=== PATIENT | female | born 1970 | race Caucasian/White ===

== ENCOUNTER 2019-05-24 10:17 | Inpatient (IN) | payer OTHER ==
[2019-05-24] MEDS ORDERED: MECLIZINE HCL 25 MG TABLET (FP) ONE (11:03)
[2019-05-24] MEDS ORDERED: ONDANSETRON 4 MG/2 ML VIAL IVPUSH ONE (11:03)
[2019-05-24] MEDS ORDERED: ONDANSETRON 4 MG/2 ML VIAL ONE (11:03)
[2019-05-24] MEDS ORDERED: MECLIZINE HCL 25 MG TABLET (FP) PO ONE (11:03)
[2019-05-24] MEDS ORDERED: SODIUM CHLORIDE 1,000 ML IV STA (11:04)
--- NOTE | 2019-05-24 11:10 | PDOC ---
History of Present Illness - General Chief Complaint: Lightheaded Stated Complaint: DIZZINESS,VOMITING Time Seen by Provider: 05/24/19 10:37 History Source: Patient Exam Limitations: No Limitations - History of Present Illness Initial Comments: 05/24/19 11:15 48 yo female pmh anxiety presents to the ED for 1 day of profound dizziness, lightheadedness, NB/NB vomiting. Pt states she woke up this AM very dizzy, feels like the room is spinning around her. Pt never had symptoms like this before, denies DECKER, weakness/sensory changes on 1 side, changes in vision, ear pain, recent illness, sick contacts, recent travel, CP,SOB, abdominal pain, changes in bowel or bladder habits. Past History - Past Medical History Allergies/Adverse Reactions: Allergies Allergy/AdvReac Type Severity Reaction Status Date / Time sulfacetamide Allergy Verified 05/24/19 10:20 [From Sulfamide] environmental allergies Allergy Uncoded 05/24/19 10:21 Home Medications: Ambulatory Orders Clonazepam 0.5 mg PO DAILY 05/24/19 Paroxetine HCl [Paxil Cr] 25 mg PO DAILY 05/24/19 COPD: No Psychiatric Problems: Yes (anxiety/depression) - Psycho Social/Smoking Cessation Hx Smoking History: Never smoked Hx Alcohol Use: No Drug/Substance Use Hx: No Review of Systems - Review of Systems Constitutional: No: Chills HEENTM: No: Blurred Vision Respiratory: No: Shortness of Breath Cardiac (ROS): No: Chest Pain, Edema ABD/GI: Yes: Nausea, Vomiting. No: Constipated, Diarrhea : No: Burning, Dysuria, Frequency, Flank Pain, Hematuria Musculoskeletal: No: Back Pain Neurological: Yes: Dizziness. No: Headache, Numbness, Paresthesia, Unsteady Gait *Physical Exam - Vital Signs Last Vital Signs Temp Pulse Resp BP Pulse Ox 97.3 F L 62 16 114/57 L 100 05/24/19 10:21 05/24/19 10:21 05/24/19 10:21 05/24/19 10:21 05/24/19 10:45 - Physical Exam General Appearance: Yes: Nourished, Appropriately Dressed. No: Apparent Distress HEENT: positive: EOMI, ULISES, Normal ENT Inspection, Hearing Grossly Normal, Other (horizontal nystagmus). negative: Scleral Icterus (R), Scleral Icterus (L ), TM Bulging, TM Dull Neck: positive: Supple. negative: Carotid bruit Respiratory/Chest: positive: Lungs Clear, Normal Breath Sounds. negative: Respiratory Distress, Accessory Muscle Use, Crackles, Rales, Rhonchi, Stridor, Wheezing Cardiovascular: positive: Regular Rhythm, Regular Rate, S1, S2. negative: Edema , JVD, Murmur Vascular Pulses: Dorsalis-Pedis (R): 4+, Doralis-Pedis (L): 4+ Gastrointestinal/Abdominal: positive: Flat, Soft. negative: Pulsatile Mass, Protuberent, Distended, Guarding, Rebound, Tenderness Musculoskeletal: negative: CVA Tenderness Extremity: positive: Normal Capillary Refill, Normal Inspection, Normal Range of Motion Integumentary: positive: Normal Color, Dry, Warm Neurologic: positive: retread builder II-XII NML intact, Fully Oriented, Alert, Normal Mood/ Affect, Normal Response, Motor Strength 5/5. negative: Facial Droop, Numbness, Sensory Deficit, Disoriented ED Treatment Course - LABORATORY CBC & Chemistry Diagram: 05/24/19 10:45 05/24/19 10:45 Medical Decision Making - Medical Decision Making 05/24/19 11:24 48 yo female pmh anxiety presents to the ED for 1 day of profound dizziness, lightheadedness, NB/NB vomiting. Pt states she woke up this AM very dizzy, feels like the room is spinning around her. States she feels worse when she moves her head or opens her eyes. Pt never had symptoms like this before, denies DECKER, weakness/sensory changes on 1 side, changes in vision, ear pain, recent illness, sick contacts, recent travel, CP,SOB, abdominal pain, changes in bowel or bladder habits. vitals WNL exam shows horizontal nystagmus Given fluids and meclizine, reassess and dispo 05/24/19 12:42 Vertigo is horizontal and rotatory, pt has no sig improvement after meclizine, will give valium, Head CT and R/O central cause of vertigo 05/24/19 19:33 Discussed case with Neuro, Dr. Ontiveros, agrees pt should be admitted and have non con Brain MRI Pt admitted to hospitalist Discharge - Discharge Information Problems reviewed: Yes Clinical Impression/Diagnosis: Vertigo - Admission Yes - Follow up/Referral - Patient Discharge Instructions - Post Discharge Activity
[2019-05-24] MEDS ORDERED: diazePAM 5 MG TABLET PO ONE (12:41)
--- NOTE | 2019-05-24 12:41 | PDOC ---
Documentation entered by Marry Araya SCRIBE, acting as scribe for Dom Polanco MD. Dom Polanco MD: This documentation has been prepared by the Marshal perdomo Nirvannie, SCRIBE, under my direction and personally reviewed by me in its entirety. I confirm that the documentation accurately reflects all work, treatment, procedures, and medical decision making performed by me. Attending Attestation - Resident Resident Name: [place] - ED Attending Attestation I have performed the following: I have examined & evaluated the patient, The case was reviewed & discussed with the resident, I agree w/resident's findings & plan, Exceptions are as noted - HPI HPI: 05/24/19 12:00 The patient is a 48 year old female, with a significant past medical history of anxiety, who presents to the emergency department with 1 day of dizziness, lightheadedness, and vomiting. As per patient, her symptoms onset shortly after waking up this morning as dizziness described as the room-spinning. She describes her emesis as NBNB. She denies recent fevers, chills, diarrhea or constipation. She denies recent dysuria, frequency, urgency or hematuria. She denies recent chest pain or shortness of breath. Allergies: Sulfacetamide, environmental - Physicial Exam PE: 05/24/19 12:36 GENERAL: The patient is awake, alert, and fully oriented, Nontoxic - in no acute distress but uncomfortable appearing with her eyes open HEAD: Normocephalic, atraumatic. EYES: persisetent Rotatory and horizontal nystagmus ENT: Normal voice, Moist mucous membranes. NECK: Normal range of motion, supple LUNGS: Breath sounds equal, clear to auscultation bilaterally. No wheezes, no rhonchi, no rales. HEART: Regular rate and rhythm, normal S1 and S2 without murmur, rub or gallop. ABDOMEN: Soft, nontender, No guarding, no rebound. No CVA tenderness EXTREMITIES: Normal range of motion, no edema. NEUROLOGICAL: No facial assymetry, Normal speech, Normal [id number], rapid alternating movements, heel degroot, Motor is 5 out of 5 symmetric in upper and lower extremities b/l, Sensation is symmetric in upper and lower extremities Bilaterally. Gait exam deferred PSYCH: Normal mood, normal affect. SKIN: Warm, Dry, normal turgor, - Medical Decision Making 05/24/19 11:36 48-year-old female history of atraumatic anxiety presenting with sudden onset vertigo since this morning That is persistent associated nausea, vomiting, difficulty ambulating without any other focal neurologic symptoms including vision changes, speech changes, focal numbness, tingling, weakness, Is also no associated headache, palpitations, difficulty hearing, Diarrhea, melena. The symptoms are worsened with movement however she notes it is very subtle but present when she is lying still On exam the patient's exam is nonfocal beside persistent horizontal and rotatory nystagmus. Will obtain a CT of the head, blood work. Consider possible central cause of vertigo versus labyrinthitis. The patient was given meclizine without significant improvement, will give the patient Valium in addition 05/24/19 14:[address] pt still very dizzy will admit for further management will dw neurology Heart Score/ECG Review - ECG Impressions Comment:: 05/24/19 14:36 Twelve-lead EKG was performed and reviewed by me. There is normal sinus rhythm with a normal rate. rate of 68 The axis is normal. The intervals are normal. There is normal R wave progression There are no ST or T wave abnormalities. Impression: Normal twelve-lead EKG
[2019-05-24] MEDS ORDERED: diazePAM 5 MG TABLET ONE (12:46)
[2019-05-24 12:52] LABS: BASO % 0.2 % (0-2.0); EOS % 0.3 % (0-4.5); HEMATOCRIT 41.5 % (32.4-45.2); HEMOGLOBIN 14.4 GM/dL (10.7-15.3); LYMPH % 14.3 % (8-40); MCH 31.6 pg (25.7-33.7); MCHC 34.7 g/dl (32.0-36.0); MEAN PLT VOLUME 8.7 fl (7.5-11.1); MONO % 3.4 % (3.8-10.2); NEUT % 81.8 % (42.8-82.8); PLATELET COUNT 219 K/MM3 (134-434); RBC 4.56 M/mm3 (3.60-5.2); RDW 13.1 % (11.6-15.6); WHITE BLOOD COUNT 8.3 K/mm3 (4.0-10.0)
[2019-05-24 13:23] LABS: ALBUMIN 3.6 g/dl (3.4-5.0); BILIRUBIN,TOTAL 0.6 mg/dL (0.2-1); BLOOD UREA NITROGEN 9.9 mg/dL (7-18); CALCIUM 8.5 mg/dL (8.5-10.1); CREATININE 0.9 mg/dL (0.55-1.3); POTASSIUM 3.7 mmol/L (3.5-5.1)
--- NOTE | 2019-05-24 16:53 | HP ---
CHIEF COMPLAINT: dizziness PCP: HISTORY OF PRESENT ILLNESS: Patient is a 48 year old female with a significant past medical history of anxiety who presents to the ED today with profound dizziness, lightheadedness, non bilious, non bloody vomiting. The dizziness began today and has never had this occur before. This morning she woke up feeling very dizzy and as though the room was spinning around her. Dizziness persisted this morning and she was unable to ambulate and instead had to crawl around the floor as she was unsteady. She verbalizes nausea but no vomiting. She last saw her eye doctor 3 weeks ago and was prescribed contacts but did not wear them. States she feels worse when she moves her head or opens her eyes. She denies any weakness of upper or lower extremities, no loss of consciousness , changes in vision, ear pain, recent illness, sick contacts, recent travel, chest pain or shortness of breath. Seen in the ED and eye exam shows horizontal nystagmus. In the ED she was given fluids and meclizine. A head CT was negative. Brain MRI and Carotid dopplers are pending. ER course was notable for: (1) head ct negative (2) given valium (3) brain mri pending Recent Travel: denies any recent travel PAST MEDICAL HISTORY: anxiety PAST SURGICAL HISTORY: none Social History: Smoking: denies Alcohol:occasionally Drugs: denies Allergies sulfacetamide [From Sulfamide] Allergy (Verified 05/24/19 10:20) environmental allergies Allergy (Uncoded 05/24/19 10:21) HOME MEDICATIONS: Home Medications Medication Instructions Recorded Clonazepam 0.5 mg PO DAILY 05/24/19 Paroxetine HCl [Paxil Cr] 25 mg PO DAILY 05/24/19 REVIEW OF SYSTEMS CONSTITUTIONAL: Absent: fever, chills, diaphoresis, generalized weakness, malaise, loss of appetite, weight change HEENT: Absent: rhinorrhea, nasal congestion, throat pain, throat swelling, difficulty swallowing, mouth swelling, ear pain, eye pain, visual changes CARDIOVASCULAR: Absent: chest pain, syncope, palpitations, irregular heart rate, lightheadedness , peripheral edema RESPIRATORY: Absent: cough, shortness of breath, dyspnea with exertion, orthopnea, wheezing, stridor, hemoptysis GASTROINTESTINAL: Absent: abdominal pain, abdominal distension, nausea, vomiting, diarrhea, constipation, melena, hematochezia GENITOURINARY: Absent: dysuria, frequency, urgency, hesitancy, hematuria, flank pain, genital pain MUSCULOSKELETAL: Absent: myalgia, arthralgia, joint swelling, back pain, neck pain SKIN: Absent: rash, itching, pallor HEMATOLOGIC/IMMUNOLOGIC: Absent: easy bleeding, easy bruising, lymphadenopathy, frequent infections ENDOCRINE: Absent: unexplained weight gain, unexplained weight loss, heat intolerance, cold intolerance PSYCHIATRIC: Absent: anxiety, depression, suicidal or homicidal ideation, hallucinations. PHYSICAL EXAMINATION Vital Signs - 24 hr 05/24/19 05/24/19 10:21 10:45 Temperature 97.3 F L Pulse Rate 62 Respiratory 16 Rate Blood Pressure 114/57 L O2 Sat by Pulse 100 100 Oximetry (%) GENERAL: Awake, alert, and fully oriented, in no acute distress. HEAD: Normal with no signs of trauma. EYES: Pupils equal, round and reactive to light, + horizontal nystagmus. EARS, NOSE, THROAT: Ears normal, nares patent, oropharynx clear without exudates. Moist mucous membranes. NECK: Normal range of motion, supple without lymphadenopathy, JVD, or masses. LUNGS: Breath sounds equal, clear to auscultation bilaterally. HEART: Regular rate and rhythm ABDOMEN: Soft, nontender, not distended, normoactive bowel sounds, no guarding, no rebound, no masses. MUSCULOSKELETAL: Normal range of motion at all joints. No bony deformities or tenderness. No CVA tenderness. UPPER EXTREMITIES: No peripheral edema. LOWER EXTREMITIES: No peripheral edema. NEUROLOGICAL: Normal speech. unsteady gait. fall risk PSYCHIATRIC: Cooperative. Good eye contact. Appropriate mood and affect. SKIN: Warm, dry, normal turgor, no rashes or lesions noted, normal capillary refill. Laboratory Results - last 24 hr 05/24/19 05/24/19 10:45 10:45 WBC 8.3 RBC 4.56 Hgb 14.4 Hct 41.5 MCV 91.0 MCH 31.6 MCHC 34.7 RDW 13.1 Plt Count 219 MPV 8.7 Absolute Neuts (auto) 6.8 Neutrophils % 81.8 Lymphocytes % 14.3 Monocytes % 3.4 L Eosinophils % 0.3 Basophils % 0.2 Nucleated RBC % 0 Sodium 137 Potassium 3.7 Chloride 105 Carbon Dioxide 23 Anion Gap 9 BUN 9.9 Creatinine 0.9 Est GFR (CKD-EPI)AfAm 87.63 Est GFR (CKD-EPI)NonAf 75.61 Random Glucose 186 H Calcium 8.5 Total Bilirubin 0.6 AST 13 L ALT 23 Alkaline Phosphatase 66 Total Protein 7.0 Albumin 3.6 ASSESSMENT/PLAN: Family Medical History Family History: Unable to Obtain Problem List - Problem (1) Vertigo Assessment/Plan: head ct negative, for brain mri carotid doppler ordered evaluate by ordering hmga1c, lipid panel, tsh physical therapy Code(s): R42 - DIZZINESS AND GIDDINESS (2) Acute labyrinthitis Assessment/Plan: Per neurology start on medrol dose back and meclizine and monitor Code(s): H83.09 - LABYRINTHITIS, UNSPECIFIED EAR (3) Anxiety Assessment/Plan: continue home meds Code(s): F41.9 - ANXIETY DISORDER, UNSPECIFIED (4) Obesity Code(s): E66.9 - OBESITY, UNSPECIFIED Visit type - Emergency Visit Emergency Visit: Yes ED Registration Date: 05/24/19 Care time: The patient presented to the Emergency Department on the above date and was hospitalized for further evaluation of their emergent condition. - New Patient This patient is new to me today: Yes Date on this admission: 05/25/19 - Critical Care Critical Care patient: No
[2019-05-24] MEDS ORDERED: clonazePAM 0.5 MG TABLET PO PRN (18:09)
--- NOTE | 2019-05-24 18:35 | CON.NEURO ---
Consult Consult Specialty:: Rama Referred by:: ER - History of Present Illness History of Present Illness: 48 year sold woman with hx of dizziness and mild obesty came in with dizziness nasusea no vomiting No speech aletration No fall - History Source History Provided By: Patient Limitations to Obtaining History: No Limitations - Alcohol/Substance Use Hx Alcohol Use: No - Smoking History Smoking history: Never smoked Home Medications - Allergies Allergies/Adverse Reactions: Allergies Allergy/AdvReac Type Severity Reaction Status Date / Time sulfacetamide Allergy Verified 05/24/19 10:20 [From Sulfamide] environmental allergies Allergy Uncoded 05/24/19 10:21 - Home Medications Home Medications: Ambulatory Orders Clonazepam 0.5 mg PO DAILY 05/24/19 Paroxetine HCl [Paxil Cr] 25 mg PO DAILY 05/24/19 Family Medical History Family History: Unremarkable Review of Systems - Review of Systems Neurological: reports: Dizziness, Headache, Incoordination Physical Exam-Neuro Vital Signs: Vital Signs Temperature 98.1 F 05/24/19 17:04 Pulse Rate 75 05/24/19 17:04 Respiratory Rate 16 05/24/19 17:04 Blood Pressure 115/71 05/24/19 17:04 O2 Sat by Pulse Oximetry (%) 97 05/24/19 17:04 Constitutional: Yes: Well Nourished Neck: Yes: WNL Cardiovascular: Yes: WNL Labs: CBC, BMP 05/24/19 10:45 05/24/19 10:45 - Neuro Exam Level Of Consciousness: Yes: Oriented to Person, Oriented to Place, Oriented to Time Eyes: Yes: PERRLA Speech: WNL Dominant Hand: Right Cranial Nerves II-XII Intact: Yes Gag: Present Response to light touch: Abnormal Response to pain prick: Abnormal Response to temperature: Abnormal Motor Strength: 3/5: Right Arm, 4/5: Right Leg, Left Leg Gait: Deferred Imaging - Results Cat Scan: Image Reviewed Problem List - Problems (1) Vertigo Code(s): R42 - DIZZINESS AND GIDDINESS Assessment/Plan Acute Labrynithis 1. MRI brain medrol dose pack meclixzine Juany Ontiveros
[2019-05-24] MEDS ORDERED: MECLIZINE HCL 12.5 MG TABLET PO PRN (18:40)
[2019-05-24] MEDS ORDERED: methylPREDNISolone 8 MG TABLET PO ONE (19:02)
[2019-05-24] MEDS ORDERED: methylPREDNISolone 4 MG TABLET PO ONE (20:30)
[2019-05-24 23:06] LABS: URINE APPEARANCE CLOUDY; URINE BILIRUBIN NEGATIVE (NEGATIVE); URINE COLOR YELLOW; URINE GLUCOSE (UA) NEGATIVE (NEGATIVE); URINE KETONE 3+ (NEGATIVE); URINE LEUK ESTERASE NEGATIVE (NEGATIVE); URINE NITRITE NEGATIVE (NEGATIVE); URINE PROTEIN NEGATIVE (NEGATIVE); URINE UROBILINOGEN 0.2 mg/dL (0.2-1.0)
[2019-05-25] VITALS: BMI 34.8
[2019-05-25] MEDS ORDERED: PT OWN MED DRAWER 7, Y5N ONE (09:38)
[2019-05-25] MEDS: methylPREDNISolone 4 MG TABLET PO SCH ×3 (09:42→17:12)
[2019-05-25] MEDS ORDERED: PARoxetine HCL 20 MG TABLET PO SCH (10:00)
[2019-05-25] MEDS ORDERED: PAROXETINE HCL 25 MG PO SCH (10:00)
[2019-05-25] MEDS ORDERED: SODIUM CHLORIDE 1,000 ML IV STA (11:52)
--- NOTE | 2019-05-25 14:34 | EKG ---
Test Reason : Blood Pressure : / mmHG Vent. Rate : 068 BPM Atrial Rate : 068 BPM P-R Int : 150 ms QRS Dur : 086 ms QT Int : 444 ms P-R-T Axes : 002 042 025 degrees QTc Int : 472 ms NORMAL SINUS RHYTHM NORMAL ECG Confirmed by MD EATON GREGORY ([id number]) on 05/25/2019 2:33:48 PM Referred By: Confirmed By:SMAMY EATON MD
[2019-05-25 16:23] LABS: HEMATOCRIT 40.3 % (32.4-45.2); HEMOGLOBIN 13.7 GM/dL (10.7-15.3); MCH 31.3 pg (25.7-33.7); MEAN PLT VOLUME 8.6 fl (7.5-11.1); PLATELET COUNT 238 K/MM3 (134-434); RBC 4.38 M/mm3 (3.60-5.2); RDW 13.2 % (11.6-15.6); WHITE BLOOD COUNT 9.4 K/mm3 (4.0-10.0)
[2019-05-25 16:52] LABS: ALBUMIN 3.3 g/dl (3.4-5.0); BILIRUBIN,TOTAL 0.3 mg/dL (0.2-1); BLOOD UREA NITROGEN 9.2 mg/dL (7-18); CALCIUM 8.2 mg/dL (8.5-10.1); CREATININE 0.8 mg/dL (0.55-1.3); MAGNESIUM 2.4 mg/dL (1.8-2.4); POTASSIUM 3.9 mmol/L (3.5-5.1); TOT PROT 6.4 g/dl (6.4-8.2)
[2019-05-25] MEDS ORDERED: TETRAHYDROZOLINE HCL EYE DROPS OD PRN (17:50)
--- NOTE | 2019-05-25 17:50 | PN ---
Physical Exam: SUBJECTIVE: Patient seen and examined. states she feels better today, but still dizzy. Needs assistance to ambulate to bathroom. OBJECTIVE: Patient is a 48 year old female with a significant past medical history of anxiety who presents to the ED on 05/24/2019 with profound dizziness, lightheadedness, non bilious, non bloody vomiting. The dizziness began today and has never had this occur before. This morning she woke up feeling very dizzy and as though the room was spinning around her. Dizziness persisted and she was unable to ambulate and instead had to crawl around the floor as she was unsteady. She denies any weakness of upper or lower extremities, no loss of consciousness , changes in vision, ear pain, recent illness, sick contacts, recent travel, chest pain or shortness of breath. In ED and eye exam shows horizontal nystagmus. In the ED she was given fluids and meclizine. A head CT was negative. Brain MRI and Carotid dopplers are pending. She denies any trauma or falls. imaging: brain mri 05/24/2019: no acute intracranial pathology head ct 05/24/2019: negative carotid doppler: negative/minimal intimal thickening at the common carotid bifurcation. Vital Signs Period Temp Pulse Resp BP Sys/Pillai Pulse Ox Last 24 Hr 97.9 F-98.6 F 66-89 18-18 113-134/65-83 97-100 GENERAL: Awake, alert, and fully oriented, in no acute distress. HEAD: Normal with no signs of trauma. EYES: Pupils equal, round and reactive to light, + horizontal nystagmus. EARS, NOSE, THROAT: Ears normal, nares patent, oropharynx clear without exudates. Moist mucous membranes. NECK: Normal range of motion, supple without lymphadenopathy, JVD, or masses. LUNGS: Breath sounds equal, clear to auscultation bilaterally. HEART: Regular rate and rhythm ABDOMEN: Soft, nontender, not distended, normoactive bowel sounds, no guarding, no rebound, no masses. MUSCULOSKELETAL: Normal range of motion at all joints. No bony deformities or tenderness. No CVA tenderness. UPPER EXTREMITIES: No peripheral edema. LOWER EXTREMITIES: No peripheral edema. NEUROLOGICAL: Normal speech. unsteady gait. fall risk PSYCHIATRIC: Cooperative. Good eye contact. Appropriate mood and affect. SKIN: Warm, dry, normal turgor, no rashes or lesions noted, normal capillary refill. Laboratory Results - last 24 hr 05/24/19 05/25/19 05/25/19 22:21 15:10 15:10 WBC 9.4 RBC 4.38 Hgb 13.7 Hct 40.3 MCV 92.0 MCH 31.3 MCHC 34.0 RDW 13.2 Plt Count 238 MPV 8.6 Sodium 140 Potassium 3.9 Chloride 108 H Carbon Dioxide 26 Anion Gap 6 L BUN 9.2 Creatinine 0.8 Est GFR (CKD-EPI)AfAm 101.04 Est GFR (CKD-EPI)NonAf 87.18 Random Glucose 112 H Hemoglobin A1c % Calcium 8.2 L Magnesium 2.4 Total Bilirubin 0.3 AST 8 L ALT 18 Alkaline Phosphatase 59 Total Protein 6.4 Albumin 3.3 L Triglycerides 87 Cholesterol 202 H Total LDL Cholesterol 132 H HDL Cholesterol 49 TSH 0.73 Thyroxine (T4) 9.4 Urine Color Yellow Urine Appearance Cloudy Urine pH 5.0 Ur Specific [place] 1.023 Urine Protein Negative Urine Glucose (UA) Negative Urine Ketones 3+ H Urine Blood Negative Urine Nitrite Negative Urine Bilirubin Negative Urine Urobilinogen 0.2 Ur Leukocyte Esterase Negative 05/25/19 15:10 WBC RBC Hgb Hct MCV MCH MCHC RDW Plt Count MPV Sodium Potassium Chloride Carbon Dioxide Anion Gap BUN Creatinine Est GFR (CKD-EPI)AfAm Est GFR (CKD-EPI)NonAf Random Glucose Hemoglobin A1c % 5.3 Calcium Magnesium Total Bilirubin AST ALT Alkaline Phosphatase Total Protein Albumin Triglycerides Cholesterol Total LDL Cholesterol HDL Cholesterol TSH Thyroxine (T4) Urine Color Urine Appearance Urine pH Ur Specific [place] Urine Protein Urine Glucose (UA) Urine Ketones Urine Blood Urine Nitrite Urine Bilirubin Urine Urobilinogen Ur Leukocyte Esterase Active Medications Generic Name Dose Route Start Last Admin Trade Name Freq PRN Reason Stop Dose Admin Atorvastatin Calcium 20 mg 05/25/19 22:00 Lipitor - PO HS LENIN Clonazepam 0.5 mg 05/24/19 18:09 05/25/19 09:43 Klonopin - PO 0.5 mg Q24H PRN Administration ANXIETY Meclizine HCl 12.5 mg 05/24/19 18:40 Antivert - PO TID PRN VERTIGO Methylprednisolone 8 mg 05/25/19 22:00 Medrol - PO 05/25/19 22:01 HS LENIN Methylprednisolone 4 mg 02/09/20 07:00 Medrol - PO TIDAC LENIN Paroxetine HCl 20 mg 05/25/19 10:00 05/25/19 09:43 Paxil - PO 20 mg DAILY LENIN Administration ASSESSMENT/PLAN: Problem List - Problems (1) Vertigo Assessment/Plan: head ct negative, brain mri negative for acute pathology. Carotid doppler shows minimal thickening at the common caroid bifurcation. hmga1c within normal limits, lipid panel with elevated cholesterol, start on low dose lipitor, but will benefit from weight loss TSH within normal limits physical therapy Code(s): R42 - DIZZINESS AND GIDDINESS (2) Acute labyrinthitis Assessment/Plan: Per neurology start on medrol dose back and meclizine and monitor Code(s): H83.09 - LABYRINTHITIS, UNSPECIFIED EAR (3) Anxiety Assessment/Plan: continue home meds Code(s): F41.9 - ANXIETY DISORDER, UNSPECIFIED (4) Obesity Code(s): E66.9 - OBESITY, UNSPECIFIED Qualifiers: Body mass index: BMI 34.0-34.9 Visit type - Emergency Visit Emergency Visit: Yes ED Registration Date: 05/24/19 Care time: The patient presented to the Emergency Department on the above date and was hospitalized for further evaluation of their emergent condition. - New Patient This patient is new to me today: No - Critical Care Critical Care patient: No - Discharge Referral Referred to [facility] Med [facility] No
[2019-05-25] MEDS ORDERED: MECLIZINE HCL 25 MG TABLET (FP) PO PRN (17:56)
[2019-05-25] MEDS ORDERED: PARoxetine HCL 30 MG TABLET PO ONE (18:00)
--- NOTE | 2019-05-25 18:03 | PN ---
Progress Note, Physician History of Present Illness: events noted chart review and feels much better about 50% better on steroids. Rotational nystagmus is much better CAT scan of the head and MRI reviewed with no evidence of acute RANGE AID pathology - Current Medication List Current Medications: Active Medications Atorvastatin Calcium (Lipitor -) 20 mg PO HS LENIN Clonazepam (Klonopin -) 0.5 mg PO Q24H PRN PRN Reason: ANXIETY Last Admin: 05/25/19 09:43 Dose: 0.5 mg Meclizine HCl (Antivert -) 25 mg PO TID PRN PRN Reason: VERTIGO Methylprednisolone (Medrol -) 8 mg PO HS LENIN Stop: 05/25/19 22:01 Methylprednisolone (Medrol -) 4 mg PO TIDAC LENIN Paroxetine HCl (Paxil -) 75 mg PO DAILY LENIN Paroxetine HCl (Paxil -) 50 mg PO ONCE ONE Stop: 05/25/19 18:01 Tetrahydrozoline HCl (Visine -) 1 drop OD QID PRN PRN Reason: DRY EYES - Objective Vital Signs: Vital Signs Temperature 98.4 F 05/25/19 13:00 Pulse Rate 81 05/25/19 15:00 Respiratory Rate 18 05/25/19 14:00 Blood Pressure 134/83 05/25/19 15:00 O2 Sat by Pulse Oximetry (%) 100 05/25/19 14:00 Constitutional: Yes: Well Nourished Eyes: Yes: WNL Neurological: Yes: Alert, Oriented, Babinski negative ...Motor Strength: WNL Labs: CBC, BMP 05/25/19 15:10 05/25/19 15:10 Problem List - Problems (1) Vertigo Assessment/Plan: ystagmus subsided taper steroids meclizine 25 mg 3 times daily Increase by mouth fluid intake Fall precautions Discharge planning Would benefit from vestibular ENG as an outpatient Juany Ontiveros M.D., MSc [facility] [address] [place] [address] Cell Code(s): R42 - DIZZINESS AND GIDDINESS
[2019-05-25] MEDS ORDERED: ATORVASTATIN CA 20 MG TABLET (FP) PO SCH (22:00)
[2019-05-25] MEDS ORDERED: methylPREDNISolone 8 MG TABLET PO SCH (22:00)
[2019-05-26] MEDS: methylPREDNISolone 4 MG TABLET PO SCH ×2 (06:31→11:54)
[2019-05-26] MEDS ORDERED: PARoxetine HCL 20 MG TABLET PO SCH (10:00)
--- NOTE | 2019-05-26 13:26 | DS ---
Physical Exam: SUBJECTIVE: Patient seen and examined. Patient reports feeling better and able to ambulate around room without dizziness. Given a fluid bolus and felt better afterwards. She agrees to follow up with Dr. Ontiveros as an outpatient. OBJECTIVE: Patient is a 48 year old female with a significant past medical history of anxiety who presents to the ED on 05/24/2019 with profound dizziness, lightheadedness, non bilious, non bloody vomiting. The dizziness began today and has never had this occur before. This morning she woke up feeling very dizzy and as though the room was spinning around her. Dizziness persisted and she was unable to ambulate and instead had to crawl around the floor as she was unsteady. She denies any weakness of upper or lower extremities, no loss of consciousness , changes in vision, ear pain, recent illness, sick contacts, recent travel, chest pain or shortness of breath. In ED and eye exam shows horizontal nystagmus. In the ED she was given fluids and meclizine. A head CT was negative. Brain MRI and Carotid dopplers are pending. She denies any trauma or falls. imaging: brain mri 05/24/2019: no acute intracranial pathology head ct 05/24/2019: negative carotid doppler: negative/minimal intimal thickening at the common carotid bifurcation. Vital Signs Period Temp Pulse Resp BP Sys/Pillai Pulse Ox Last 24 Hr 98.2 F-98.5 F 58-83 18-18 95-134/57-83 100-100 PHYSICAL EXAM GENERAL: Awake, alert, and fully oriented, in no acute distress. HEAD: Normal with no signs of trauma. EYES: Pupils equal, round and reactive to light, + horizontal nystagmus. EARS, NOSE, THROAT: Ears normal, nares patent, oropharynx clear without exudates. Moist mucous membranes. NECK: Normal range of motion, supple without lymphadenopathy, JVD, or masses. LUNGS: Breath sounds equal, clear to auscultation bilaterally. HEART: Regular rate and rhythm ABDOMEN: Soft, nontender, not distended, normoactive bowel sounds, no guarding, no rebound, no masses. MUSCULOSKELETAL: Normal range of motion at all joints. No bony deformities or tenderness. No CVA tenderness. UPPER EXTREMITIES: No peripheral edema. LOWER EXTREMITIES: No peripheral edema. NEUROLOGICAL: Normal speech. unsteady gait. fall risk PSYCHIATRIC: Cooperative. Good eye contact. Appropriate mood and affect. SKIN: Warm, dry, normal turgor, no rashes or lesions noted, normal capillary refill. LABS Laboratory Results - last 24 hr 05/25/19 05/25/19 05/25/19 15:10 15:10 15:10 WBC 9.4 RBC 4.38 Hgb 13.7 Hct 40.3 MCV 92.0 MCH 31.3 MCHC 34.0 RDW 13.2 Plt Count 238 MPV 8.6 Sodium 140 Potassium 3.9 Chloride 108 H Carbon Dioxide 26 Anion Gap 6 L BUN 9.2 Creatinine 0.8 Est GFR (CKD-EPI)AfAm 101.04 Est GFR (CKD-EPI)NonAf 87.18 Random Glucose 112 H Hemoglobin A1c % 5.3 Calcium 8.2 L Magnesium 2.4 Total Bilirubin 0.3 AST 8 L ALT 18 Alkaline Phosphatase 59 Total Protein 6.4 Albumin 3.3 L Triglycerides 87 Cholesterol 202 H Total LDL Cholesterol 132 H HDL Cholesterol 49 TSH 0.73 Thyroxine (T4) 9.4 HOSPITAL COURSE: Date of Admission:05/24/19 Date of Discharge: 05/26/19 Vertigo: Resolved. She ambulated with PT wiht a steady gait. Seen ambulating around room. Denies any headaches Taper steriods as an outpatient on Meclazine 25mg TID Advised to continue to increase intake of water Patient to follow up with Dr. Ontiveros as an outpatient. Minutes to complete discharge: 60 Discharge Summary Problems reviewed: Yes Reason For Visit: VERTIGO Current Active Problems Acute labyrinthitis (Acute) Anxiety (Acute) Obesity (Acute) Vertigo (Acute) Condition: Improved - Instructions Diet, Activity, Other Instructions: Ms Agee You were admitted to [facility] on 05/24/2019 for vertigo ( dizziness). You will be sent home today. During your hospital stay you were evaluated by a neurologist who diagnosed you with acute labyrinthitis that is causing your vertigo. What is acute labyrinthitis? Acute labyrinthitis is an inflammatory disorder of the inner ear or labyrinth. This condition produces disturbance of balance and hearing and can cause acute inflammation for the labyrinth. What is the treatment for acute labyrinthitis? The treatment consists of steriods to decrease the inflammation as well as meclazine to help the dizziness. We will be sending you home with a Medrol taper as follows: On 05/26/2019, take Medrol 4mg three times per day at 8am, 2pm and 8pm On 05/27/2019, take Medrol 4mg three times per day at 8am, 2pm and 8pm On 05/28/2019, take Medrol 4mg two times per day at 8am, and 8pm On 05/29/2019, take Medrol 4mg once per day at 8am - this is your last dose Please take this medication with food. Further We will send you home with Meclazine. What is meclazine used for? Meclazine is a medication that can help your symptoms of dizziness. Take it three times per day until you are no longer dizzy, then stop taking it altogether. Next steps: We recommend that you see Dr. Ontiveros for outpatient followup. You may need vestibular ENG. A vestibular ENG is a test that can be done to measure eye movements to evaluate sings of vestibular dysfunction or neurological problems. Questions: Please call me Jordana Mcbride @ [facility] [phone] Referrals: Baltazar Chávez [Primary Care Provider] - Juany Ontiveros MD [Staff Physician] - Disposition: HOME - Home Medications Comprehensive Discharge Medication List: Ambulatory Orders Clonazepam 0.5 mg PO DAILY 05/24/19 Paroxetine HCl [Paxil Cr] 75 mg PO DAILY 05/24/19 Atorvastatin Ca [Lipitor] 20 mg PO HS #30 tablet 05/26/19 Meclizine HCl [Antivert -] 25 mg PO TID PRN #90 tablet 05/26/19 Methylprednisolone [Medrol -] 4 mg PO TID #10 tablet 05/26/19 Problem List - Problems (1) Vertigo Code(s): R42 - DIZZINESS AND GIDDINESS (2) Acute labyrinthitis Code(s): H83.09 - LABYRINTHITIS, UNSPECIFIED EAR (3) Anxiety Code(s): F41.9 - ANXIETY DISORDER, UNSPECIFIED (4) Obesity Code(s): E66.9 - OBESITY, UNSPECIFIED Qualifiers: Body mass index: BMI 34.0-34.9 This patient is new to me today: No Emergency Visit: Yes ED Registration Date: 05/24/19 Care time: The patient presented to the Emergency Department on the above date and was hospitalized for further evaluation of their emergent condition. Critical Care patient: No - Discharge Referral Referred to [facility] No
[2019-05-26 14:02] VITALS: BP 107/68; PULSE 61; TEMP 98.4
== END 2019-05-26 13:51 | disposition home or self-care (01) | DRG 149 ==
LOC: SUPCPDRO 10:17 → JER 10:17 → JERBED 16:59 → J5S 23:09
PROVIDERS: ADMIT Internal Medicine; ATTEND Nurse Practitioner Family
DX: H83.09 Labyrinthitis, unspecified ear (principal); R42 Dizziness and giddiness; F41.9 Anxiety disorder, unspecified; E66.9 Obesity, unspecified; Z68.34 Body mass index [BMI] 34.0-34.9, adult
CPT/HCPCS: 36415; 70450-TC; 70551-TC; 80053; 80061; 81003; 83036; 83721; 83735; 84436; 84443; 85025; 85027; 87086; 93005; 93010; 93880-TC; 97116-GP; 97161-GP; 99284-25; J7030

== ENCOUNTER 2020-11-30 17:51 | Emergency (ER) | payer OTHER ==
[2020-11-30 18:20] VITALS: TEMP 98.3; BMI 29.2
[2020-11-30] MEDS ORDERED: METOCLOPRAMIDE HCL INJECTION 10 MG/2 ML VIAL IVPUSH ONE (18:43)
[2020-11-30] MEDS ORDERED: METOCLOPRAMIDE HCL INJECTION 10 MG/2 ML VIAL ONE (20:00)
[2020-11-30 21:14] LABS: BASO % 0.3 % (0-2.0); EOS % 0.1 % (0-4.5); HEMATOCRIT 42.2 % (32.4-45.2); HEMOGLOBIN 14.7 GM/dL (10.7-15.3); LYMPH % 6.8 % (8-40); MCH 31.8 pg (25.7-33.7); MCHC 34.8 g/dl (32.0-36.0); MEAN CELL VOLUME 91.5 fl (80-96); MEAN PLT VOLUME 7.5 fl (7.5-11.1); MONO % 2.9 % (3.8-10.2); NEUT % 89.9 % (42.8-82.8); PLATELET COUNT 223 10^3/uL (134-434); RBC 4.61 M/mm3 (3.60-5.2); RDW 12.8 % (11.6-15.6); WHITE BLOOD COUNT 13.6 K/mm3 (4.0-10.0)
[2020-11-30 21:35] LABS: ALBUMIN 3.8 g/dl (3.4-5.0); CALCIUM 8.3 mg/dL (8.5-10.1)
[2020-11-30 21:36] LABS: BLOOD UREA NITROGEN 17.3 mg/dL (7-18)
[2020-11-30 21:38] LABS: CREATININE 0.9 mg/dL (0.55-1.3)
[2020-11-30 21:40] LABS: BILIRUBIN,TOTAL 0.4 mg/dL (0.2-1); TOT PROT 7.2 g/dl (6.4-8.2)
[2020-11-30] MEDS ORDERED: diazePAM 5 MG TABLET PO ONE (22:35)
[2020-11-30] MEDS ORDERED: diazePAM 5 MG TABLET ONE (22:40)
[2020-11-30 23:23] VITALS: BP 130/79; PULSE 79
== END 2020-11-30 23:23 | disposition home or self-care (01) ==
LOC: JER 17:51
PROC: 3E033GC Introduction of Other Therapeutic Substance into Peripheral Vein, Percutaneous Approach (ICD-10-PCS; principal; 2020-11-30)
PROC: 3E033GC Introduction of Other Therapeutic Substance into Peripheral Vein, Percutaneous Approach (ICD-10-PCS; 2020-11-30)
DX: R42 Dizziness and giddiness (principal)
CPT/HCPCS: 36415; 80053; 82962; 85025; 99284-25